=== PATIENT | male | born 1950 | race Hispanic/Latino ===

== ENCOUNTER 2018-06-06 08:40 | Outpatient (CLI) | payer MEDICARE | END 2018-06-06 08:41 | disposition home or self-care (01) | LOC: C.RADIC 08:40 ==

== ENCOUNTER 2018-06-13 12:53 | Inpatient (IN) | payer MEDICARE | END 2018-06-23 15:01 | disposition home or self-care (01) | DRG 616 | LOC: C.6T 06-14 01:03 → C.9I 06-16 08:57 → C.5S 06-20 19:48 → C.ER 12:53 → C.3T 14:38 | PROC: 0Y6S0Z3 Detachment at Left 2nd Toe, Low, Open Approach (ICD-10-PCS; 2018-06-17 16:30) | PROC: 4A023N7 Measurement of Cardiac Sampling and Pressure, Left Heart, Percutaneous Approach (ICD-10-PCS; principal; 2018-06-17 17:10) | PROC: B2111ZZ Fluoroscopy of Multiple Coronary Arteries using Low Osmolar Contrast (ICD-10-PCS; 2018-06-17 17:10) | PROC: 0JH606Z Insertion of Pacemaker, Dual Chamber into Chest Subcutaneous Tissue and Fascia, Open Approach (ICD-10-PCS; 2018-06-17 17:10) | PROC: 02H63JZ Insertion of Pacemaker Lead into Right Atrium, Percutaneous Approach (ICD-10-PCS; 2018-06-17 17:10) | PROC: 02HK3JZ Insertion of Pacemaker Lead into Right Ventricle, Percutaneous Approach (ICD-10-PCS; 2018-06-17 17:10) | DX: E11.69 Type 2 diabetes mellitus with other specified complication (principal); G04.91 Myelitis, unspecified; I44.2 Atrioventricular block, complete; M86.172 Other acute osteomyelitis, left ankle and foot; I45.89 Other specified conduction disorders; E11.52 Type 2 diabetes mellitus with diabetic peripheral angiopathy with gangrene; I96 Gangrene, not elsewhere classified; E11.621 Type 2 diabetes mellitus with foot ulcer; E78.5 Hyperlipidemia, unspecified; I10 Essential (primary) hypertension; I25.10 Atherosclerotic heart disease of native coronary artery without angina pectoris; I49.8 Other specified cardiac arrhythmias; L97.519 Non-pressure chronic ulcer of other part of right foot with unspecified severity; Z79.4 Long term (current) use of insulin; Z85.038 Personal history of other malignant neoplasm of large intestine; E11.40 Type 2 diabetes mellitus with diabetic neuropathy, unspecified ==